=== PATIENT | female | born 1950 ===

== ENCOUNTER 2017-04-20 14:59 | Emergency (ER) | payer MEDICARE ==
[2017-04-20 15:19] VITALS: RESP 18; TEMP 98.6
--- NOTE | 2017-04-20 16:09 | C.PDOC ---
History Of Present Illness 66 y/o female presents to the ED with complaints of rash to hands and face for the past couple days. Pt notes picking roses from her garden and getting stuck by thorns prior to onset. She denies new product use or food consumption. Pt denies fever, chills, SOB or any other complaints. Time Seen by Provider: 04/20/17 15:24 Chief Complaint (Nursing): Abnormal Skin Integrity History Per: Patient History/Exam Limitations: no limitations Onset/Duration Of Symptoms: Days Current Symptoms Are (Timing): Still Present Severity: Mild Recent travel outside of the [place]: No Past Medical History Reviewed: Historical Data, Nursing Documentation, Vital Signs Vital Signs: Last Vital Signs Temp 98.6 F 04/20/17 15:16 Pulse 57 L 04/20/17 16:25 Resp 18 04/20/17 16:25 BP 140/90 04/20/17 16:25 Pulse Ox 98 04/20/17 16:25 - Medical History PMH: HTN Family History: States: Unknown Family Hx - Social History Hx Alcohol Use: No Hx Substance Use: No - Immunization History Hx Tetanus Toxoid Vaccination: No Hx Influenza Vaccination: Yes Hx Pneumococcal Vaccination: No Review Of Systems Constitutional: Negative for: Fever, Chills Respiratory: Negative for: Shortness of Breath Skin: Positive for: Rash (hands and face) Physical Exam - Physical Exam Appears: Non-toxic, No Acute Distress Skin: Warm, Dry, Rash (urticaria to bilateral cheeks and area below right eye; vesicular rash to bilateral hands/fingers) Head: Normacephalic Neck: Normal, Normal ROM Chest: Symmetrical Cardiovascular: Rhythm Regular Respiratory: Normal Breath Sounds, No Rales, No Rhonchi, No Wheezing Extremity: Normal ROM, No Swelling Neurological/Psych: Oriented x3, Normal Speech, Normal Cognition ED Course And Treatment O2 Sat by Pulse Oximetry: 95 (room air) Pulse Ox Interpretation: Normal Medical Decision Making Medical Decision Making: discussed with pt's pmd Dr nIgram; pt to f/u wiht her for derm referral tomorrow. Disposition Discussed With : Patty Ingram Doctor Will See Patient In The: Office Counseled Patient/Family Regarding: Diagnosis, Need For Followup, Rx Given - Disposition Referrals: Patty Ingram MD [Non-Staff] - Disposition: HOME/ ROUTINE Disposition Time: 16:12 Condition: STABLE Additional Instructions: Take banophen by mouth every 6 hours or next few days to help with itching. Take , itraconazole once a day. Take steroids as prescribed. Your blood sugars may go up for a few days when on this medication. Follow up with Dr Ingram tomorrow for a dermatology referral. Return to ER for any worse symptoms. Prescriptions: Itraconazole 200 mg PO DAILY #14 cap Methylprednisolone [Medrol Dose Pack (21 tabs)] 4 mg PO DAILY #21 mg Instructions: Sporotrichosis (ED) Forms: Gen Discharge Inst Tristanian Print Language: ANGUILLAN - Clinical Impression Clinical Impression: Sporotrichosis, unspecified - PA / BUSINESS QUALITY ASSURANCE ANALYST / Resident Statement MD/DO has reviewed & agrees with the documentation as recorded. - Scribe Statement The provider has reviewed the documentation as recorded by the Scribabbie Bender All medical record entries made by the Capriibabbie were at my direction and personally dictated by me. I have reviewed the chart and agree that the record accurately reflects my personal performance of the history, physical exam, medical decision making, and the department course for this patient. I have also personally directed, reviewed, and agree with the discharge instructions and disposition.
[2017-04-20 16:25] VITALS: BP 140/90; PULSE 57
[2017-04-22 07:10] VITALS: O2SAT 95
== END 2017-04-20 16:30 | disposition home or self-care (01) ==
LOC: C.ER 14:59
DX: B42.9 Sporotrichosis, unspecified (principal)